=== PATIENT | female | born 1965 | race Asian ===

== ENCOUNTER → 2018-03-29 09:57 | Outpatient (CLI) | payer OTHER, MEDICAID, SELFPAY ==
[2018-03-29 10:33] LABS: Add Manual Diff / Slide Review NO; Basophils Percent Auto 0.8 % (0-2); Eosinophils Percent Auto 1.7 % (2-4); Hematocrit 44.4 % (36-46); Hemoglobin 14.9 g/dL (12.0-16.0); Lymphocytes Percent Auto 34.1 % (25-40); Mean Corpuscular HGB Conc 33.6 % (30-36); Mean Corpuscular Hemoglobin 30.8 PG (26-34); Mean Corpuscular Volume 91.7 fL (80-100); Neutrophils Absolute Auto 4300 /uL (3000-5900); Neutrophils Percent Auto 58.4 % (50-75); Platelet Count 249 X10^3/uL (150-400); Red Blood Cell Count 4.84 X10^6/uL (4.0-5.2); Red Cell Distribution Width 12.8 % (11.6-14.8); White Blood Cell Count 7.4 X10^3/uL (4.5-11.0)
[2018-03-29 10:47] LABS: Alanine Aminotransferase 55 IU/L (9-52); Albumin 4.6 g/dL (3.5-5.0); Albumin Globulin Ratio 1.5 (1.0-2.8); Alkaline Phosphatase 97 U/L (38-126); Aspartate Aminotransferase 36 IU/L (14-36); BUN Creatinine Ratio 23.3 (6-22); Bilirubin Total 0.9 mg/dL (0.2-1.3); Blood Urea Nitrogen 14 mg/dL (7-17); Calcium 9.3 mg/dL (8.4-10.2); Carbon Dioxide 29 mmol/L (22-32); Chloride 104 mmol/L (98-107); Cholesterol 179 mg/dL (140-199); Estimated Glomerular Filt Rate > 60.0 mL/min (>60); Globulin 3.1 g/dL (1.7-4.1); Glucose 106 mg/dL (70-100); HDL Cholesterol 46 mg/dL (40-60); HEMOLYSIS < 15 (0-50); LDL Cholesterol Calculated 77 mg/dL (<100); Potassium 4.3 mmol/L (3.4-5.1); Sodium 145 mmol/L (137-145); Total Protein 7.7 g/dL (6.3-8.2); Triglycerides 280 mg/dL (35-150)
[2018-03-29 11:18] LABS: TSH w/ Reflex to FT4 1.89 uIU/mL (0.47-4.68)
[2018-03-29 13:14] LABS: Appearance Urine UA CLEAR; Bilirubin Urine UA NEGATIVE (NEGATIVE); Color Urine UA YELLOW; Glucose Urine UA NEGATIVE (Normal); Ketones Urine UA NEGATIVE (NEGATIVE); Leukocyte Esterase Urine UA NEGATIVE (NEGATIVE); Nitrite Urine UA Negative (Negative); Occult Blood Urine UA 2+ (Negative); Protein Urine UA NEGATIVE (Negative); Urobilinogen Urine UA 0.2 E.U./dL (0.2)
[2018-03-29 13:15] LABS: Bacteria Urine None Seen; WBC Urine None Seen (0-5/HPF)
[2018-03-29 13:25] LABS: Culture Indicated Urine Cult Not Indicated; RBC Urine 1-5/HPF (0-5/HPF)
== END ==
PROVIDERS: Visit Provider Nurse Practitioner Family
DX: E78.5 Hyperlipidemia, unspecified (principal); I10 Essential (primary) hypertension
CPT/HCPCS: 36415; 80053; 80061; 81003; 81015; 84443; 85025

== ENCOUNTER → 2018-05-15 09:37 | Outpatient (CLI) | payer OTHER, MEDICAID, SELFPAY ==
--- NOTE | 2018-05-15 09:38 | DI.MG.S_ITS ---
BILATERAL DIGITAL SCREENING MAMMOGRAM 3D/2D WITH CAD: 05/15/2018 CLINICAL: Routine screening. Family history of breast cancer. Comparison is made to exams dated: 02/06/2017 mammogram, 09/21/2015 mammogram, and 05/11/2014 mammogram - [facility]. The tissue of both breasts is heterogeneously dense. This may lower the sensitivity of mammography. Current study was also evaluated with a Computer Aided Detection (CAD) system. No significant masses, calcifications, or other findings are seen in either breast. There has been no significant interval change. IMPRESSION: NEGATIVE There is no mammographic evidence of malignancy. A 1 year screening mammogram is recommended. This exam was interpreted at Station ID: [id number]. NOTE: For mammograms, a report in lay terms will be sent to the patient. Approximately 15% of breast malignancies will not be visualized mammographically. In the management of a palpable breast mass, a negative mammogram must not discourage biopsy of a clinically suspicious lesion. Electronically Signed By: Shama shen/heber:05/15/2018 11:39:34 letter sent: Normal Exam ACR BI-RADS Category 1: Negative 3341F
== END ==
PROVIDERS: Family Provider Family Medicine; PCP Family Medicine; Visit Provider Nurse Practitioner Family
DX: Z12.31 Encounter for screening mammogram for malignant neoplasm of breast (principal); Z80.3 Family history of malignant neoplasm of breast
CPT/HCPCS: 77063; 77067

== ENCOUNTER 2018-09-16 06:43 | Day surgery (SDC) | payer OTHER, MEDICAID, SELFPAY ==
[2018-09-16] VITALS (7 sets, daily range): BP systolic 105–146; BP diastolic 54–92; PULSE 70–86; RESP 11–18; TEMP 35.9–36.8; O2SAT 96–100; BMI 28.2
--- NOTE | 2018-09-16 07:49 | PM.HP.1 ---
History of Present Illness Date Patient Seen: 09/16/18 Time Patient Seen: 07:50 Chief complaint: [id number] Narrative: Yousuf is a very pleasant 53-year-old lady who presents for her 1st screening colonoscopy. She denies any problems or symptoms related to the function of her GI tract. She reports she needs a colonoscopy as part of a health maintenance program. She denies any family history of colon or other GI malignancy. She denies any unexplained weight loss, she denies any constitutional symptoms. Patient History Medical History Hepatitis (Chronic) Hyperlipidemia (Chronic) Hypertension (Chronic) Surgical History Anesthesia (Resolved) History of oophorectomy (Resolved 10/20/12) Family History Brother Age: 58 High cholesterol Father Age: 84 Hypertension High cholesterol Mother Age: 84 Diabetes mellitus Sister Age: 52 Cancer Social History household members: family Smoking Status: Never smoker Family & Social History Family History Brother Age: 58 High cholesterol Father Age: 84 Hypertension High cholesterol Mother Age: 84 Diabetes mellitus Sister Age: 52 Cancer Social History: household members family Tobacco & Substance use: Smoking Status Never smoker Meds Home Medications Medication Instructions Recorded Confirmed Type atorvastatin 20 mg tablet 20 mg PO HS #90 tab 03/29/18 09/16/18 Rx metoprolol succinate ER 50 mg 50 mg PO QDAY #90 tab 03/29/18 09/16/18 Rx tablet,extended release 24 hr Allergies Allergy/AdvReac Type Severity Reaction Status Date / Time No Known Drug Allergies Allergy Unverified 09/16/18 07:13 Review of Systems Review of Systems All systems reviewed & are unremarkable except as noted in HPI and below Exam Vital Signs (past 8 hours): - 09/16/18 07:27 Temperature 97.9 F Pulse Rate 73 Respiratory Rate 18 Blood Pressure 146/92 H Pulse Oximetry 96 Oxygen Delivery Method Room Air Narrative Exam Narrative: Pleasant and healthy-appearing middle-aged lady in no distress HEENT: Normocephalic and atraumatic, pupils equal round reactive to light accommodation with anicteric sclera Lungs: Clear to auscultation bilaterally Heart: Regular rate and rhythm without murmur rub or gallop Abdomen: Soft, nontender, active bowel sounds Extremities: Warm and well perfused without edema Assessment & Plan Assessment & Plan narrative: Pleasant and generally healthy 53-year-old lady here for her 1st screening colonoscopy. We discussed the risks and benefits of the procedure the patient expressed a desire to complete it today.
[2018-09-16] MEDS: MIDAZOLAM 5 MG/5 ML VIAL IV (08:13)
[2018-09-16] MEDS: fentaNYL 250 MCG/5 ML INJ IV (08:14)
--- NOTE | 2018-09-16 08:17 | PM.OP.1 ---
Operative Date/Time/Diagnoses Date of procedure: 09/16/18 Time of procedure: 08:17 Pre-op diagnosis: Screening Post-op diagnosis: same Procedure & Clinicians Procedure: Colonoscopy to the cecum Indications: No prior colonoscopy Surgeon: Chantelle Long Click Yes if Unassisted: Yes Anesthesia Type: Sedation (Versed 4 mg; fentanyl 100 mcg) Operative Notes Findings: 1. Adequate prep 2. No polyps or mass lesions 3. No AV malformations 4. Very minimal diverticulosis with just 1 or 2 very tiny pockets in the sigmoid region 5. Grade 1 internal hemorrhoids Specimen(s): none sent Procedure in detail: After obtaining informed consent, the patient was brought to the GI suite and placed in the left lateral decubitus position on the examination table. After placement of appropriate monitors, the patient was given incremental doses of Versed and Fentanyl until an appropriate level of sedation was achieved. A time out was held per SCOAP protocol. A digital rectal examination was performed and did not reveal any masses or obstructing lesions. The colonoscope was gently passed into the patient's anus and the entire colon navigated to the level of the cecum with minimal difficulty. Once in the cecum, the scope was withdrawn being sure to go before and beyond all mucosal folds and prominences and get an excellent examination. The findings are noted above. At the level of the rectal vault, the scope was retroflexed and the internal anal canal was examined. The scope was straightened and air aspirated from the colon. The instrument was removed from the patient's body and the procedure was concluded. The patient was allowed to awaken from sedation without difficulty and taken to the post-anesthesia care unit in good condition. Total sedation time was 25 min Total withdrawal time was 10 min 30 sec Complications: none Condition: stable Disposition: PACU Plan for aftercare: 1. Discharge to home 2. Plan for next colonoscopy in 10 years or as clinically indicated.
== END 2018-09-16 09:10 | disposition home or self-care (01) ==
PROVIDERS: Visit Provider Surgery
PROC: 0DJD8ZZ Inspection of Lower Intestinal Tract, Via Natural or Artificial Opening Endoscopic (ICD-10-PCS; CPT 45378; principal; 2018-09-16 07:45)
DX: Z12.11 Encounter for screening for malignant neoplasm of colon (principal); K57.30 Diverticulosis of large intestine without perforation or abscess without bleeding; K64.0 First degree hemorrhoids; I10 Essential (primary) hypertension; E78.5 Hyperlipidemia, unspecified
CPT/HCPCS: 45378; 99152; 99153; J2250; J3010

== ENCOUNTER → 2020-02-25 08:35 | Outpatient (CLI) | payer OTHER, MEDICAID, SELFPAY ==
[2020-02-25 09:44] LABS: Alanine Aminotransferase 31 IU/L (<35); Albumin 4.6 g/dL (3.5-5.0); Albumin Globulin Ratio 1.3 (1.0-2.8); Alkaline Phosphatase 100 U/L (38-126); Aspartate Aminotransferase 37 IU/L (14-36); BUN Creatinine Ratio 25.8 (6-22); Bilirubin Total 0.8 mg/dL (0.2-1.3); Blood Urea Nitrogen 16 mg/dL (7-17); Calcium 9.5 mg/dL (8.4-10.2); Carbon Dioxide 28 mmol/L (22-32); Chloride 105 mmol/L (98-107); Cholesterol 207 mg/dL (140-199); Estimated Glomerular Filt Rate > 60.0 mL/min (>60); Globulin 3.5 g/dL (1.7-4.1); Glucose 116 mg/dL (70-100); HDL Cholesterol 41 mg/dL (40-60); HEMOLYSIS 26 (0-50); LDL Cholesterol Calculated 117 mg/dL (<100); Potassium 4.3 mmol/L (3.4-5.1); Sodium 141 mmol/L (137-145); Total Protein 8.1 g/dL (6.3-8.2); Triglycerides 243 mg/dL (35-150)
== END ==
PROVIDERS: PCP Registered Nurse; Referring Provider Registered Nurse; Visit Provider Registered Nurse
DX: E78.5 Hyperlipidemia, unspecified (principal); I10 Essential (primary) hypertension
CPT/HCPCS: 36415; 80053; 80061

== ENCOUNTER → 2020-03-03 08:19 | Outpatient (CLI) | payer OTHER, MEDICAID, SELFPAY ==
[2020-03-03 09:35] LABS: Hemoglobin A1C% w Est Avg Glu 6.4 % (4.0-6.0)
== END ==
PROVIDERS: PCP Registered Nurse; Referring Provider Registered Nurse; Visit Provider Registered Nurse
DX: R73.9 Hyperglycemia, unspecified (principal)
CPT/HCPCS: 36415; 83036

== ENCOUNTER → 2020-03-07 08:12 | Outpatient (CLI) | payer OTHER, MEDICAID, SELFPAY ==
--- NOTE | 2020-03-07 08:33 | DI.MG.S_ITS ---
Patient Name: ELENA FORREST date: 1965 Sex: F Attending Physician: Falguni Benton Indications: Date: 03/07/2020 08:31 At the request of: BUBBA FUENTES Procedure: MM screening mammo BI BILATERAL DIGITAL SCREENING MAMMOGRAM 3D/2D WITH CAD: 03/07/2020 CLINICAL: Routine screening. Family history of breast cancer. Comparison is made to exams dated: 05/15/2018 mammogram, 02/06/2017 mammogram, and 09/21/2015 mammogram - [facility]. The tissue of both breasts is heterogeneously dense. This may lower the sensitivity of mammography. Current study was also evaluated with a Computer Aided Detection (CAD) system. No significant masses, calcifications, or other findings are seen in either breast. There has been no significant interval change. IMPRESSION: NEGATIVE There is no mammographic evidence of malignancy. A 1 year screening mammogram is recommended. This exam was interpreted at Station ID: [id number]. NOTE: For mammograms, a report in lay terms will be sent to the patient. Approximately 15% of breast malignancies will not be visualized mammographically. In the management of a palpable breast mass, a negative mammogram must not discourage biopsy of a clinically suspicious lesion. Electronically Signed By: Shama shen/heber:03/07/2020 08:38:59 letter sent: Normal Exam ACR BI-RADS Category 1: Negative 3341F
== END ==
PROVIDERS: PCP Registered Nurse; Referring Provider Registered Nurse; Visit Provider Registered Nurse
DX: Z12.31 Encounter for screening mammogram for malignant neoplasm of breast (principal); Z80.3 Family history of malignant neoplasm of breast
CPT/HCPCS: 77063; 77067

== ENCOUNTER → 2020-06-02 08:09 | Outpatient (CLI) | payer OTHER, MEDICAID, SELFPAY ==
[2020-06-02 09:17] LABS: Hemoglobin A1C% w Est Avg Glu 6.4 % (4.0-6.0)
== END ==
PROVIDERS: PCP Registered Nurse; Referring Provider Registered Nurse; Visit Provider Registered Nurse
DX: R73.9 Hyperglycemia, unspecified (principal)
CPT/HCPCS: 36415; 83036

== ENCOUNTER → 2021-01-15 07:35 | Outpatient (CLI) | payer OTHER, MEDICAID, SELFPAY ==
[2021-01-15 08:33] LABS: Alanine Aminotransferase 40 IU/L (<35); Albumin 4.2 g/dL (3.5-5.0); Albumin Globulin Ratio 1.4 (1.0-2.8); Alkaline Phosphatase 80 U/L (38-126); Aspartate Aminotransferase 33 IU/L (14-36); BUN Creatinine Ratio 24.6 (6-22); Bilirubin Total 0.6 mg/dL (0.2-1.3); Blood Urea Nitrogen 16 mg/dL (7-17); Calcium 8.8 mg/dL (8.4-10.2); Carbon Dioxide 27 mmol/L (22-32); Chloride 104 mmol/L (98-107); Cholesterol 158 mg/dL (140-199); Estimated Glomerular Filt Rate > 60.0 mL/min (>60); Glucose 113 mg/dL (70-100); HDL Cholesterol 45 mg/dL (40-60); HEMOLYSIS 39 (0-50); LDL Cholesterol Calculated 67 mg/dL (<100); Potassium 4.5 mmol/L (3.4-5.1); Sodium 140 mmol/L (137-145); Total Protein 7.2 g/dL (6.3-8.2); Triglycerides 230 mg/dL (35-150)
== END ==
PROVIDERS: PCP Registered Nurse; Referring Provider Registered Nurse; Visit Provider Registered Nurse
DX: E78.5 Hyperlipidemia, unspecified (principal); I10 Essential (primary) hypertension
CPT/HCPCS: 36415; 80053; 80061

== ENCOUNTER → 2021-06-27 07:48 | Outpatient (CLI) | payer OTHER, MEDICAID, SELFPAY ==
--- NOTE | 2021-06-27 | DI.MG.S_ITS ---
BILATERAL DIGITAL SCREENING MAMMOGRAM 3D/2D WITH CAD: 06/27/2021 CLINICAL: Routine screening. Family history of breast cancer. Comparison is made to exams dated: 03/07/2020 mammogram, 05/15/2018 mammogram, and 02/06/2017 mammogram - [facility]. The tissue of both breasts is heterogeneously dense. This may lower the sensitivity of mammography. Current study was also evaluated with a Computer Aided Detection (CAD) system. No significant masses, calcifications, or other findings are seen in either breast. There has been no significant interval change. IMPRESSION: NEGATIVE There is no mammographic evidence of malignancy. A 1 year screening mammogram is recommended. This exam was interpreted at Station ID: [id number]. NOTE: For mammograms, a report in lay terms will be sent to the patient. Approximately 15% of breast malignancies will not be visualized mammographically. In the management of a palpable breast mass, a negative mammogram must not discourage biopsy of a clinically suspicious lesion. Electronically Signed By: Go bedoya/heber:06/27/2021 08:52:00 letter sent: Normal Exam ACR BI-RADS Category 1: Negative 3341F
== END ==
PROVIDERS: PCP Registered Nurse; Referring Provider Registered Nurse; Visit Provider Registered Nurse
DX: Z12.31 Encounter for screening mammogram for malignant neoplasm of breast (principal); Z80.3 Family history of malignant neoplasm of breast
CPT/HCPCS: 77063; 77067

== ENCOUNTER → 2021-12-21 08:27 | Outpatient (CLI) | payer OTHER, MEDICAID, SELFPAY ==
[2021-12-21 09:21] LABS: Hematocrit 43.4 % (36-46); Hemoglobin 14.5 g/dL (12.0-16.0); Mean Corpuscular HGB Conc 33.4 % (30-36); Mean Corpuscular Hemoglobin 30.4 PG (26-34); Platelet Count 229 X10^3/uL (150-400); Red Blood Cell Count 4.77 X10^6/uL (4.0-5.2); Red Cell Distribution Width 12.7 % (11.6-14.8); White Blood Cell Count 7.7 X10^3/uL (4.5-11.0)
[2021-12-21 09:50] LABS: Alanine Aminotransferase 24 IU/L (<35); Albumin 4.3 g/dL (3.5-5.0); Albumin Globulin Ratio 1.5 (1.0-2.8); Alkaline Phosphatase 84 U/L (38-126); Aspartate Aminotransferase 27 IU/L (14-36); BUN Creatinine Ratio 28.3 (6-22); Bilirubin Total 0.6 mg/dL (0.2-1.3); Blood Urea Nitrogen 17 mg/dL (7-17); Calcium 8.9 mg/dL (8.4-10.2); Carbon Dioxide 24 mmol/L (22-32); Chloride 107 mmol/L (98-107); Cholesterol 160 mg/dL (140-199); Estimated Glomerular Filt Rate > 60 mL/min (>60); Globulin 2.9 g/dL (1.7-4.1); Glucose 94 mg/dL (70-100); HDL Cholesterol 47 mg/dL (40-60); HEMOLYSIS 39 (0-50); LDL Cholesterol Calculated 70 mg/dL (<100); Potassium 4.4 mmol/L (3.4-5.1); Sodium 140 mmol/L (137-145); Total Protein 7.2 g/dL (6.3-8.2); Triglycerides 217 mg/dL (35-150)
[2021-12-21 10:05] LABS: TSH w/ Reflex to FT4 3.23 uIU/mL (0.47-4.68)
[2021-12-21 10:36] LABS: Creatinine Urine Random 90.4 mg/dL
[2021-12-21 10:40] LABS: Microalbumi Creatinin Ratio Ur 33.1 ug/mg CR (<30)
== END ==
PROVIDERS: PCP Registered Nurse Diabetes Educator; Referring Provider Registered Nurse Diabetes Educator; Visit Provider Registered Nurse Diabetes Educator
DX: E11.9 Type 2 diabetes mellitus without complications (principal); E78.5 Hyperlipidemia, unspecified; I10 Essential (primary) hypertension
CPT/HCPCS: 36415; 80053; 80061; 82043; 82570; 83036; 84443; 85027

== ENCOUNTER → 2022-04-07 07:21 | Outpatient (CLI) | payer BC, SELFPAY ==
[2022-04-07 08:13] LABS: Creatinine Urine Random 91.7 mg/dL
[2022-04-07 08:18] LABS: Microalbumi Creatinin Ratio Ur 41.4 ug/mg CR (<30); Microalbumin Urine Random 3.8 mg/dL (0-1.6)
== END ==
PROVIDERS: PCP Registered Nurse Diabetes Educator; Referring Provider Registered Nurse Diabetes Educator; Visit Provider Registered Nurse Diabetes Educator
DX: R80.9 Proteinuria, unspecified (principal)
CPT/HCPCS: 82043; 82570

== ENCOUNTER → 2022-07-03 15:30 | Outpatient (CLI) | payer BC, SELFPAY ==
--- NOTE | 2022-07-03 15:31 | DI.MG.S_ITS ---
BILATERAL DIGITAL SCREENING MAMMOGRAM 3D/2D WITH CAD: 07/03/2022 CLINICAL: Routine screening. Family history of breast cancer. Comparison is made to exams dated: 06/27/2021 mammogram, 03/07/2020 mammogram, and 05/15/2018 mammogram - [facility]. Both breasts are heterogeneously dense, which may obscure small masses (category c / 51-75% glandular tissue). Current study was also evaluated with a Computer Aided Detection (CAD) system. No significant masses, calcifications, or other findings are seen in either breast. There has been no significant interval change. IMPRESSION: NEGATIVE There is no mammographic evidence of malignancy. A 1 year screening mammogram is recommended. Based on the Tyrer Cuzick model (a risk assessment model) the patient's lifetime risk is 11.6% and her 10 year risk is 3.6%. According to the ACR, ACS, and NCCN guidelines, an annual breast MRI exam along with mammogram is recommended if the patient's lifetime risk is 20% or greater. This exam was interpreted at Station ID: [id number]. NOTE: For mammograms, a report in lay terms will be sent to the patient. Approximately 15% of breast malignancies will not be visualized mammographically. In the management of a palpable breast mass, a negative mammogram must not discourage biopsy of a clinically suspicious lesion. Electronically Signed By: Aubrie guardado/heber:07/04/2022 10:58:34 letter sent: Normal Exam ACR BI-RADS Category 1: Negative 3341F
== END ==
PROVIDERS: PCP Registered Nurse Diabetes Educator; Referring Provider Registered Nurse Diabetes Educator; Visit Provider Registered Nurse Diabetes Educator
DX: Z12.31 Encounter for screening mammogram for malignant neoplasm of breast (principal); Z80.3 Family history of malignant neoplasm of breast
CPT/HCPCS: 77063; 77067

== ENCOUNTER → 2022-12-05 08:34 | Outpatient (CLI) | payer BC, SELFPAY ==
[2022-12-05 09:32] LABS: Hematocrit 42.9 % (36-46); Hemoglobin 14.4 g/dL (12.0-16.0); Mean Corpuscular HGB Conc 33.5 % (30-36); Mean Corpuscular Hemoglobin 30.7 PG (26-34); Mean Corpuscular Volume 91.6 fL (80-100); Platelet Count 222 X10^3/uL (150-400); Red Blood Cell Count 4.69 X10^6/uL (4.0-5.2); White Blood Cell Count 7.4 X10^3/uL (4.5-11.0)
[2022-12-05 09:51] LABS: Alanine Aminotransferase 35 IU/L (<35); Albumin 4.3 g/dL (3.5-5.0); Albumin Globulin Ratio 1.3 (1.0-2.8); Alkaline Phosphatase 80 U/L (38-126); Aspartate Aminotransferase 31 IU/L (14-36); BUN Creatinine Ratio 35.7 (6-22); Bilirubin Total 0.7 mg/dL (0.2-1.3); Blood Urea Nitrogen 20 mg/dL (7-17); Calcium 8.9 mg/dL (8.4-10.2); Carbon Dioxide 28 mmol/L (22-32); Chloride 103 mmol/L (98-107); Cholesterol 207 mg/dL (140-199); Estimated Glomerular Filt Rate > 60 mL/min (>60); Globulin 3.2 g/dL (1.7-4.1); Glucose 86 mg/dL (70-100); HDL Cholesterol 53 mg/dL (40-60); HEMOLYSIS 42 (0-50); LDL Cholesterol Calculated 129 mg/dL (<100); Potassium 4.2 mmol/L (3.4-5.1); Sodium 137 mmol/L (137-145); Total Protein 7.5 g/dL (6.3-8.2); Triglycerides 127 mg/dL (35-150)
[2022-12-05 10:27] LABS: TSH w/ Reflex to FT4 2.83 uIU/mL (0.47-4.68)
[2022-12-05 10:51] LABS: Microalbumi Creatinin Ratio Ur 6.9 ug/mg CR (<30); Microalbumin Urine Random 0.6 mg/dL (0-1.6)
[2022-12-06 07:03] LABS: Labcorp Hemoglobin (Hb) A1c 5.7 % (4.8-5.6)
== END ==
PROVIDERS: PCP Registered Nurse Diabetes Educator; Referring Provider Registered Nurse Diabetes Educator; Visit Provider Registered Nurse Diabetes Educator
DX: E78.5 Hyperlipidemia, unspecified (principal); R73.01 Impaired fasting glucose; I10 Essential (primary) hypertension; R80.9 Proteinuria, unspecified
CPT/HCPCS: 36415; 80053; 80061; 82043; 82570; 83036; 84443; 85027

== ENCOUNTER → 2023-04-03 08:50 | Outpatient (CLI) | payer BC, SELFPAY ==
--- NOTE | 2023-04-03 08:51 | DI.US.S_ITS ---
PROCEDURE: US PELVIC COMPLETE INDICATIONS: POSTMENOPAUSAL BLEEDING TECHNIQUE: Real-time scanning was performed of the pelvic organs, with image documentation. Additional endovaginal scanning was necessary due to incomplete visualization of the adnexal and endometrial structures by transabdominal scanning. COMPARISON: [facility], , PELVIC COMPLETE, 10/20/2012, 0:54. FINDINGS: Uterus: Uterus is anteverted and normal in size at 5 x 1.9 x 2.7 cm. The myometrium is We strive to produce accurate, complete, and clear reports of imaging services. To assist us in improving patient care, this report was composed using standard report templates and voice recognition software. Therefore, it may contain abnormal punctuation, insertions and/or omissions. Occasional wrong-word or sound-alike substitutions may occur. Though we review the report and make efforts to correct it, we do recommend that the report be read carefully in proper context to recognize any text inaccuracies. Dictated by: Reginald De La Rosa M.D. on 04/03/2023 at 11:23 Approved by: Reginald De La Rosa M.D. on 04/03/2023 at 12:43
--- NOTE | 2023-04-03 08:51 | DI.MG.S_ITS ---
BILATERAL DIGITAL DIAGNOSTIC MAMMOGRAM 3D/2D: 04/03/2023 CLINICAL: Right breast lumps, Due for Bilateral routine. Comparison is made to exams dated: 07/03/2022 mammogram, 06/27/2021 mammogram, 03/07/2020 mammogram, and 05/15/2018 mammogram - [facility]. Both breasts are heterogeneously dense, which may obscure small masses (category c / 51-75% glandular tissue). No significant masses, calcifications, or other findings are seen in either breast. IMPRESSION: INCOMPLETE: NEEDS ADDITIONAL IMAGING EVALUATION No mammographic evidence of malignancy. A targeted ultrasound is recommended and will immediately follow. Based on Tyrer-Cuzick model (a risk assessment model), the patient's lifetime risk is 21.3% and her 10 year risk is 6.8%. If a patient has an elevated risk, a more comprehensive evaluation should be considered and/or a referral to a genetic counselor. The [place] [employer], [place] [employer], and NCCN Guidelines advise the consideration of Breast MRI as an adjunct to screening mammography in patients whose Lifetime risk to develop breast cancer is 20% or higher. This exam was interpreted at Station ID: [id number]. NOTE: For mammograms, a report in lay terms will be sent to the patient. Approximately 15% of breast malignancies will not be visualized mammographically. In the management of a palpable breast mass, a negative mammogram must not discourage biopsy of a clinically suspicious lesion. Electronically Signed By: Jake Bradshaw M.D. slc/:04/03/2023 09:35:28 ACR BI-RADS Category 0: Incomplete 3340F
--- NOTE | 2023-04-03 08:51 | DI.US.S_ITS ---
LIMITED ULTRASOUND OF RIGHT BREAST: 04/03/2023 CLINICAL: Palpable right breast lump. Comparison is made to exams dated: 04/03/2023 mammogram, 07/03/2022 mammogram, 06/27/2021 mammogram, and 03/07/2020 mammogram - [facility]. Real-time and continuous wave Doppler ultrasound of the right breast 12-1 o'clock region were performed. No significant abnormalities were seen sonographically in the right breast at the palpable abnormality. IMPRESSION: NEGATIVE There is no sonographic evidence of malignancy. No mass at the right breast palpable abnormality. Exam findings were conveyed to the patient. Patient is advised to monitor for significant change. Clinical follow-up as needed. A 1 year screening mammogram is recommended. This exam was interpreted at Station ID: [id number]. Electronically Signed By: Jake Bradshaw M.D. slc/:04/03/2023 10:21:14 letter sent: Normal Exam Ultrasound BI-RADS: 1 Negative
== END ==
PROVIDERS: PCP Registered Nurse Diabetes Educator; Referring Provider Registered Nurse Diabetes Educator; Visit Provider Registered Nurse Diabetes Educator
DX: N63.10 Unspecified lump in the right breast, unspecified quadrant (principal); N95.0 Postmenopausal bleeding; R92.2 Inconclusive mammogram; Z90.722 Acquired absence of ovaries, bilateral
CPT/HCPCS: 76642; 76830; 76856; 77066; G0279

== ENCOUNTER → 2023-09-30 08:40 | Outpatient (CLI) | payer BC, SELFPAY ==
--- NOTE | 2023-09-30 08:41 | DI.MRI.S_ITS ---
BREAST MRI OF BOTH BREASTS: 09/30/2023 CLINICAL: High risk. PROCEDURE: MR BREAST BI WO/W CON INDICATIONS: high risk screen TECHNIQUE: The patient was placed prone in a dedicated breast imaging coil. Precontrast axial STIR and 3D FLASH without fat saturation sequences were obtained. Both before and after bolus injection of contrast, sequential 1-minute axial 3D FLASH with fat saturation sequences for 3 time points, with subtraction images and maximum intensity projections (MIP's) generated. Delayed sagittal FLASH images with fat saturation were also obtained. CONTRAST: 20 cc ProHance IV contrast. Computer-aided detection, including computer algorithm analysis of MRI image data for lesion detection and characterization, pharmacokinetic analysis, with further physician review for interpretation, was performed. COMPARISON: [facility], , US BREAST RT LIMITED, 04/03/2023, 9:47. [facility], , MM DIAGNOSTIC MAMMO BI, 04/03/2023, 9:12. [facility], MM SCREENING MAMMO BI, 07/03/2022, 15:56. [facility], MM SCREENING MAMMO BI, 06/27/2021, 8:26. [facility], , MM SCREENING MAMMO BI, 03/07/2020, 8:33. , MM SCREENING MAMMO BI, 05/15/2018, 10:09. CT abdomen and pelvis 10/19/2012. FINDINGS: Image quality: Excellent. There is mild background parenchymal enhancement. Right breast: No mass or suspicious enhancement. Left breast: No mass or suspicious enhancement. Miscellaneous: No enlarged lymph nodes. Multiple gallstones are again seen. IMPRESSION: NEGATIVE No mass or suspicious enhancement. No enlarged lymph nodes. BIRADS 1. A 1 year screening mammogram is recommended. 04/03/2024 screening mammogram. Recommend continued screening breast MRI in 1 year. COMMENT: The imaging literature indicates that a negative contrast breast MRI examination has a high sensitivity and a moderate specificity for detecting and excluding invasive carcinomas to a detection threshold of 3-5 mm; nonetheless, appropriate clinical and mammographic follow-up are recommended. MRI is not sensitive for detecting DCIS (ductal carcinoma in situ) and may not detect large invasive neoplasms that show only minimal enhancement such as mucinous carcinoma. If there are suspicious calcifications or clinically worrisome palpable masses, then biopsy should still be considered. Invasive neoplasms can be hidden by co-existent and benign enhancement caused by mastitis, hormone therapy effects, radiation therapy, , and recent biopsy or surgery. False positive examinations can occur in a number of circumstances, including breasts that have recently been subject to invasive procedures and those that contain atypical ductal hyperplasia, hormonally stimulated glandular tissue, fat necrosis, or radial scars. Dictated by: Jake Bradshaw M.D. on 09/30/2023 at 16:02 This exam was interpreted at Station ID: [id number]. Electronically Signed By: Jake Bradshaw M.D. slc/:09/30/2023 16:23:02 letter sent: Normal Exam ACR BI-RADS Category 1: Negative 3341F
== END ==
PROVIDERS: PCP Registered Nurse Diabetes Educator; Referring Provider Registered Nurse Diabetes Educator; Visit Provider Registered Nurse Diabetes Educator
DX: Z12.39 Encounter for other screening for malignant neoplasm of breast (principal); K80.20 Calculus of gallbladder without cholecystitis without obstruction
CPT/HCPCS: 77049; A9579

== ENCOUNTER → 2024-08-03 11:35 | Outpatient (CLI) | payer BC, SELFPAY ==
[2024-08-03 12:34] LABS: Hematocrit 43.5 % (36-46); Hemoglobin 14.2 g/dL (12.0-16.0); Mean Corpuscular HGB Conc 32.6 % (30-36); Mean Corpuscular Hemoglobin 30.4 PG (26-34); Mean Corpuscular Volume 93.4 fL (80-100); Platelet Count 220 X10^3/uL (150-400); Red Blood Cell Count 4.66 X10^6/uL (4.0-5.2); Red Cell Distribution Width 12.8 % (11.6-14.8); White Blood Cell Count 6.5 X10^3/uL (4.5-11.0)
[2024-08-03 12:38] LABS: Hemoglobin A1C% w Est Avg Glu 5.4 % (4.0-6.0)
[2024-08-03 12:50] LABS: Alanine Aminotransferase 27 IU/L (<35); Albumin 4.7 g/dL (3.5-5.0); Albumin Globulin Ratio 1.7 (1.0-2.8); Alkaline Phosphatase 83 U/L (38-126); Aspartate Aminotransferase 33 IU/L (14-36); BUN Creatinine Ratio 27.4 (6-22); Bilirubin Total 0.6 mg/dL (0.2-1.3); Blood Urea Nitrogen 17 mg/dL (7-17); Calcium 9.6 mg/dL (8.4-10.2); Carbon Dioxide 25 mmol/L (22-32); Chloride 103 mmol/L (98-107); Cholesterol 188 mg/dL (140-199); Estimated Glomerular Filt Rate > 60 mL/min (>60); Globulin 2.7 g/dL (1.7-4.1); Glucose 96 mg/dL (70-100); HDL Cholesterol 68 mg/dL (40-60); HEMOLYSIS < 15 (0-50); LDL Cholesterol Calculated 98 mg/dL (<100); Potassium 4.1 mmol/L (3.4-5.1); Sodium 137 mmol/L (137-145); Total Protein 7.4 g/dL (6.3-8.2); Triglycerides 110 mg/dL (35-150)
[2024-08-03 13:21] LABS: TSH w/ Reflex to FT4 0.82 uIU/mL (0.47-4.68)
[2024-08-03 15:41] LABS: Creatinine Urine Random 75.05 mg/dL
[2024-08-03 15:50] LABS: Microalbumin Urine Random < 0.6 mg/dL (0-1.6)
== END ==
PROVIDERS: PCP Registered Nurse Diabetes Educator; Referring Provider Registered Nurse Diabetes Educator; Visit Provider Registered Nurse Diabetes Educator
DX: R73.01 Impaired fasting glucose (principal); I10 Essential (primary) hypertension; E78.5 Hyperlipidemia, unspecified
CPT/HCPCS: 36415; 80053; 80061; 82043; 82570; 83036; 84443; 85027

== ENCOUNTER → 2024-09-21 07:44 | Outpatient (CLI) | payer BC, SELFPAY ==
--- NOTE | 2024-09-21 07:45 | DI.MRI.S_ITS ---
MR breast BI wo/w con: 09/21/2024. BI-RADS: 1 CLINICAL: 59-year old female for bilateral diagnostic breast MRI. Current reported family history of breast cancer: sister and maternal aunt's daughter. PRIOR EXAMS 09/30/2023, 04/03/2023, 07/03/2022, 06/27/2021, 03/07/2020, 05/15/2018, 02/06/2017, 09/21/2015. MRI TECHNIQUE Bilateral breast MRI was performed on a 1.5 Genesis magnet using a dedicated breast coil with mild compression. Axial T1 and T2 STIR sequences were obtained. Dynamic contrast enhanced VIBRANT fat-suppressed sequences were obtained. Delayed sagittal high resolution or sagittal reconstructed isotropic sequence was also obtained. Subtraction images and maximum intensity projection images were obtained. The study was evaluated using DeepFlex software. 20 ml ProHance was administered intravenously. FIBROGLANDULAR TISSUE Bilateral: C. Heterogeneous fibroglandular tissue. BACKGROUND PARENCHYMAL ENHANCEMENT Bilateral: Minimal symmetrical background parenchymal enhancement. BREAST FINDINGS Bilateral There are no abnormal axillary or internal mammary lymph nodes. No suspicious mass, suspicious non-mass enhancement, or other concerning finding identified. No significant change since previous exam(s). ABDOMEN FINDINGS Multiple gallstones are again seen. IMPRESSION: * No evidence of malignancy. RECOMMENDATIONS Bilateral * Annual screening mammography (The last mammogram on record is from 04/03/2023). OVERALL ASSESSMENT CATEGORY BI-RADS-1: Negative. ELECTRONICALLY SIGNED: Tena Saldaña M.D. on 09/21/2024 at 05:32:55 PM PT Interpreting Station ID: [id number]
== END ==
PROVIDERS: PCP Registered Nurse Diabetes Educator; Referring Provider Registered Nurse Diabetes Educator; Visit Provider Registered Nurse Diabetes Educator
DX: Z12.39 Encounter for other screening for malignant neoplasm of breast (principal); R92.333 Mammographic heterogeneous density, bilateral breasts
CPT/HCPCS: 77049; A9579

== ENCOUNTER → 2024-10-01 | Outpatient (CLI) | payer BC, SELFPAY ==
--- NOTE | 2024-10-01 07:32 | DI.MG.S_ITS ---
MM screening mammo BI: 10/01/2024. BI-RADS: 1 CLINICAL: 59-year old female for bilateral screening mammogram. Tyrer-Cuzick lifetime risk of 12.1%. Current reported family history of breast cancer: sister and maternal aunt's daughter. PRIOR EXAMS Breast MRI(s): 09/21/2024. Nine Other Exams on 09/30/2023, 04/03/2023, 07/03/2022, 06/27/2021, 03/07/2020, 05/15/2018, 02/06/2017, 09/21/2015. MAMMOGRAPHY TECHNIQUE: 2D and 3D (tomosynthesis) digital mammographic views obtained, with additional images as needed for full coverage. Current study was also evaluated with a Computer Aided Detection (CAD) system. DENSITY C. The breasts are heterogeneously dense, which may obscure small masses. MAMMOGRAPHY FINDINGS Bilateral: No suspicious mass, asymmetry, microcalcification, or other abnormality seen. No significant change from comparison. IMPRESSION: * No evidence of malignancy. RECOMMENDATIONS Bilateral * Annual screening mammography. OVERALL ASSESSMENT CATEGORY BI-RADS-1: Negative. The [place] [employer] recommends annual screening mammography beginning at age 40 for women with average risk of breast cancer. ELECTRONICALLY SIGNED: Tena Saldaña M.D. on 10/03/2024 at 08:59:57 AM PT Interpreting Station ID: [id number]
== END ==
LOC: MAMMO 07:32
PROVIDERS: PCP Registered Nurse Diabetes Educator; Referring Provider Registered Nurse Diabetes Educator; Visit Provider Registered Nurse Diabetes Educator
DX: Z12.31 Encounter for screening mammogram for malignant neoplasm of breast (principal); Z80.3 Family history of malignant neoplasm of breast; R92.333 Mammographic heterogeneous density, bilateral breasts
CPT/HCPCS: 77063; 77067